=== PATIENT | female | born 1980 | race Caucasian/White ===

== ENCOUNTER 2016-07-14 10:06 | Emergency (ER) | payer MEDICAID ==
[~2016-07-14 10:06] MED LIST: ALBUTEROL20 ml INH
== END 2016-07-14 10:09 | disposition home or self-care (01) ==
LOC: CED 10:06
DX: J45.901 Unspecified asthma with (acute) exacerbation (principal); F17.200 Nicotine dependence, unspecified, uncomplicated
CPT/HCPCS: 94640; 99283

== ENCOUNTER 2016-07-20 21:18 | Emergency (ER) | payer MEDICAID | END 2016-07-20 21:36 | disposition home or self-care (01) | LOC: CFTX 21:18 | DX: J45.901 Unspecified asthma with (acute) exacerbation (principal); F17.210 Nicotine dependence, cigarettes, uncomplicated | CPT/HCPCS: 94640; 99283 ==

== ENCOUNTER 2016-07-21 09:28 | Emergency (ER) | payer MEDICAID ==
--- NOTE | ~2016-07-21 | CR72 ---
[facility] A Service of [facility] & [facility] RADIOLOGY TEXT RESULTS PATIENT: WANDER BENAVIDES LOCATION: [facility] : 78 UNIT #: [id number] AGE: [address]: Teofilo Grace MD SEX: F ORDER DR: [id number] [facility] [address] [place], [place] [address] [id number] E MR#: [id number] Acc #: [id number] NAME: WANDER BENAVIDES : 1980 SEX: F STUDY DATE/TIME: 07/21/2016 09:54 UNIT: [facility] ROOM: STUDY DESCRIPTION: CR Chest Single View Portable Attending Physician: Teofilo Grace M.D. Ordering Physician: Teofilo Grace M.D. Primary Care Physician: No Primary Care Physician MEDICAL IMAGING REPORT This report is preliminary unless electronic signature is present EXAM Chest portable 07/21/2016 0954 hours CLINICAL HISTORY 36-year-old woman with complaint of shortness of air and wheezing for 6 days. COMPARISON 04/26/2016 FINDINGS Upright portable film demonstrates normal cardiac, mediastinal and hilar contours. Lungs are mildly hyperinflated but clear. No effusions. IMPRESSION Mild pulmonary hyperinflation with clear lungs. Dictated by... Dara Sadler M.D. THIS IS AN ELECTRONICALLY VERIFIED REPORT Dara Sadler M.D. at 07/21/2016 2:28 PM SARAH/chung TD: 07/21/2016 11:08 JOB #: [id number] MEDICAL IMAGING REPORT Page 1 of 1 COPY
== END 2016-07-21 11:00 | disposition home or self-care (01) ==
LOC: CED 09:28
DX: J45.909 Unspecified asthma, uncomplicated (principal); Z91.14 Patient's other noncompliance with medication regimen; J44.9 Chronic obstructive pulmonary disease, unspecified; F17.200 Nicotine dependence, unspecified, uncomplicated
CPT/HCPCS: 71010; 94640; 99283

== ENCOUNTER 2016-09-15 09:39 | Emergency (ER) | payer MEDICAID ==
--- NOTE | ~2016-09-15 | CR63 ---
[facility] A Service of [facility] & [facility] RADIOLOGY TEXT RESULTS PATIENT: WANDER BENAVIDES LOCATION: [facility] : 78 UNIT #: [id number] AGE: [address]: Kiya Pimentel APRN SEX: F ORDER DR: [id number] [facility] [address] [place], [place] [address] [id number] E MR#: [id number] Acc #: [id number] NAME: WANDER BENAVIDES : 1980 SEX: F STUDY DATE/TIME: 09/15/2016 10:22 UNIT: [facility] ROOM: STUDY DESCRIPTION: CR Chest 2 View Attending Physician: Kiya Pimentel A.P.R.N. Referring Physician: Landry Lau M.D. Ordering Physician: Ed Manuel Gonzalez M.D. Primary Care Physician: No Primary Care Physician MEDICAL IMAGING REPORT This report is preliminary unless electronic signature is present EXAM Two-view chest. HISTORY Shortness of air and wheezing x2 weeks. History of asthma, longstanding smoking history. FINDINGS Two views of the chest demonstrates pulmonary hyperinflation, hyperlucency compatible with history of asthma. Reactive airway disease. No acute airspace disease or consolidation. No effusions. Heart and mediastinum unremarkable. No pneumothorax. Several linear densities are noted over the right lateral chest which appear to represent the patient's clothing and overlapping shadow. Osseous structures unremarkable. IMPRESSION Pulmonary hyperinflation compatible with history of asthma or reactive airway disease. No acute findings. Dictated by... Chadwick Nelson M.D. THIS IS AN ELECTRONICALLY VERIFIED REPORT Chadwick Nelson M.D. at 09/16/2016 12:28 PM Iva TD: 09/15/2016 23:29 JOB #: [id number] MEDICAL IMAGING REPORT Page 1 of 1 COPY
== END 2016-09-15 11:24 | disposition home or self-care (01) ==
LOC: CED 09:39
DX: J45.31 Mild persistent asthma with (acute) exacerbation (principal); F17.210 Nicotine dependence, cigarettes, uncomplicated
CPT/HCPCS: 71020; 94640; 99285

== ENCOUNTER 2016-09-16 06:49 | Emergency (ER) | payer MEDICAID | END 2016-09-16 08:06 | disposition home or self-care (01) | LOC: CED 06:49 | DX: J45.909 Unspecified asthma, uncomplicated (principal); F17.200 Nicotine dependence, unspecified, uncomplicated | CPT/HCPCS: 94640; 99284 ==

== ENCOUNTER 2016-09-17 20:17 | Emergency (ER) | payer MEDICAID ==
[2016-09-17 22:01] LABS: URINE SOURCE CLEAN CATCH
[2016-09-17 22:05] LABS: URINE APPEARANCE CLEAR; URINE BILIRUBIN NEG (NEG); URINE BLOOD 3+ (NEG); URINE COLOR YELLOW; URINE GLUCOSE NEG (NEG); URINE KETONE NEG (NEG); URINE LEUKOCYTE ESTERASE NEG (NEG); URINE NITRATE NEG (NEG); URINE PROTEIN NEG (NEG); URINE SPECIFIC GRAVITY 1.007 (1.003-1.035); URINE UROBILINOGEN 0.2 MG/DL (NEG)
[2016-09-17 22:05] LABS: BASOPHIL# 0.2 X10e3 (0-0.3); BASOPHIL% 2.5 % (0-2.5); EOSINOPHIL# 0.8 X10e3 (0-0.7); EOSINOPHIL% 10.4 % (0.0-7.0); HEMATOCRIT 37.4 % (35.0-45.0); HEMOGLOBIN 12.4 gm/dL (12.0-16.0); LYMPHOCYTE# 2.3 X10e3 (1.0-3.5); LYMPHOCYTE% 28.2 % (17.0-45.0); MEAN CELL VOLUME 88.3 FL (83-96); MEAN CORPUSCULAR HEMOGLOBIN 29.2 PG (28-34); MEAN PLATELET VOLUME 7.5 FL (6.5-11.5); MONOCYTE# 0.6 X10e3 (0-1.0); MONOCYTE% 7.7 % (3.0-12.0); NEUTROPHIL# 4.1 X10e3 (1.5-7.1); NEUTROPHIL% 51.2 % (40-75); PLATELET COUNT 428 X10e3 (140-420); RED BLOOD COUNT 4.24 X10e (3.90-5.30); RED CELL DISTRIBUTION WIDTH 14.8 % (11.0-15.5)
[2016-09-17 22:07] LABS: DIFF IND NO
[2016-09-17 22:08] LABS: CULTURE INDICATED? YES; URINE BACTERIA AUWI 1+ (NEGATIVE); URINE SQUAMOUS EPITHELIAL CELL OCC /[HPF]
[2016-09-17 22:35] LABS: ALBUMIN SERUM 4.1 g/dL (3.5-5.0); BILIRUBIN, DIRECT 0.1 mg/dL (0.0-0.2); BILIRUBIN,INDIRECT 0.1 mg/dL (0.0-0.9); BILIRUBIN,TOTAL 0.2 mg/dL (0.2-2.0); BUN/CREATININE RATIO 11.42; CALCIUM SERUM 9.1 mg/dL (8.4-10.2); CREATININE SERUM 0.7 mg/dL (0.6-1.4); GLOM FILT RATE Estimated 110.7 mL/min (>60); POTASSIUM 3.5 mmol/L (3.5-5.1); PROTEIN TOTAL SERUM 6.3 g/dL (6.0-8.3)
== END 2016-09-17 22:55 | disposition home or self-care (01) ==
LOC: CED 20:17
PROVIDERS: Student in an Organized Health Care Education/Training Program
DX: J45.909 Unspecified asthma, uncomplicated (principal); F17.200 Nicotine dependence, unspecified, uncomplicated
CPT/HCPCS: 80048; 80076; 81003; 84703; 85025; 87086; 94640; 99284